=== PATIENT | female | born 1970 | race Caucasian/White ===

== ENCOUNTER → 2023-09-08 | Outpatient (CLI) | payer OTHER ==
[~2023-09-08] MED LIST: CELEXA 20MG20 MG/TA1 PO
[2023-09-08 15:55] LABS: CLUE CELLS PRESENT (Not Observd)
[2023-09-08 16:06] LABS: BASO # 0.02 K/mm3 (0.02-0.10); EOS # 0.29 K/mm3 (0.04-0.40); EOS % 3.3 % (1.0-5.0); HEMATOCRIT 46.1 % (37.0-47.0); HEMOGLOBIN 15.3 g/dL (12.5-16.0); LYMPH# 2.71 K/mm3 (1.50-4.00); MEAN CELL VOLUME 97 fl (78-100); MEAN CORPUSCULAR HEMOGLOBIN 32 pg (27-31); MEAN CORPUSCULAR HGB CONC 33 g/dL (33-37); MEAN PLATELET VOLUME 9.2 fl (7.4-10.4); MONO # 0.63 K/mm3 (0.20-0.80); NEU # 5.18 K/mm3 (1.40-6.50); PLATELET COUNT 241 K/mm3 (130-400); RED BLOOD COUNT 4.76 M/mm3 (4.10-5.30); RED CELL DISTRIBUTION WIDTH 11.8 % (11.5-14.5); WHITE BLOOD COUNT 8.9 K/mm3 (4.8-10.8)
[2023-09-08 16:10] LABS: ALBUMIN 4.3 g/dL (3.5-5.0); SODIUM 141 mmol/L (136-145)
[2023-09-08 16:13] LABS: GLUCOSE 107 mg/dL (65-105); TOTAL PROTEIN 7.8 g/dL (6.4-8.3)
[2023-09-08 16:14] LABS: CARBON DIOXIDE 25 mmol/L (22-29)
[2023-09-08 16:15] LABS: TOTAL BILIRUBIN 0.9 mg/dL (0.2-1.2)
[2023-09-08 16:18] LABS: AST-SGOT 21 U/L (5-34)
[2023-09-08 16:19] LABS: ALT/SGPT 19 U/L (0-55)
== END ==
LOC: LAB 15:29
PROVIDERS: Nurse Practitioner Family
DX: R10.9 Unspecified abdominal pain (principal)
CPT/HCPCS: Q0111

== ENCOUNTER 2024-01-19 11:46 | Emergency (ER) | payer OTHER, BC ==
[~2024-01-19] VITALS: Ht 157.5 cm; Wt 63.4 kg
[2024-01-19] MEDS ORDERED: Acetaminophen 500 MG TAB PO ONE (12:15)
[2024-01-19 12:24] LABS: BASO # 0.01 K/mm3 (0.02-0.10); EOS # 0.24 K/mm3 (0.04-0.40); HEMATOCRIT 44.5 % (37.0-47.0); LYMPH# 2.71 K/mm3 (1.50-4.00); MEAN CELL VOLUME 96 fl (78-100); MEAN CORPUSCULAR HEMOGLOBIN 33 pg (27-31); MEAN CORPUSCULAR HGB CONC 34 g/dL (33-37); MEAN PLATELET VOLUME 10.2 fl (7.4-10.4); MONO # 0.44 K/mm3 (0.20-0.80); NEU # 4.66 K/mm3 (1.40-6.50); PLATELET COUNT 223 K/mm3 (130-400); RED BLOOD COUNT 4.62 M/mm3 (4.10-5.30); RED CELL DISTRIBUTION WIDTH 11.9 % (11.5-14.5); WHITE BLOOD COUNT 8.1 K/mm3 (4.8-10.8)
[2024-01-19 12:31] LABS: ALBUMIN 4.2 g/dL (3.5-5.0)
[2024-01-19 12:33] LABS: CALCIUM 9.5 mg/dL (8.3-10.5)
[2024-01-19 12:34] LABS: TOTAL PROTEIN 7.4 g/dL (6.4-8.3)
[2024-01-19 12:48] LABS: D-DIMER 0.42 mg/L FEU (0.15-0.50)
[2024-01-19 13:28] VITALS: BP 118/76
== END 2024-01-19 13:33 | disposition home or self-care (01) ==
LOC: ED 11:46
PROVIDERS: Nurse Practitioner
DX: J06.9 Acute upper respiratory infection, unspecified (principal); F41.9 Anxiety disorder, unspecified

== ENCOUNTER → 2024-03-26 | Outpatient (CLI) | payer OTHER | LOC: LAB 13:49 | DX: R31.9 Hematuria, unspecified (principal) ==

== ENCOUNTER → 2024-04-02 | Outpatient (CLI) | payer OTHER | LOC: LAB 18:04 | DX: R10.9 Unspecified abdominal pain (principal) ==